=== PATIENT | female | born 1965 | race Caucasian/White ===

== ENCOUNTER 2016-07-31 12:53 | Emergency (ER) | payer OTHER ==
--- NOTE | ~2016-07-31 | CT4 ---
[facility] A Service of [facility] & [facility] RADIOLOGY TEXT RESULTS PATIENT: GEN GARCIA LOCATION: SED : 63 UNIT #: [id number] AGE: [address]: Blayne Borden DO SEX: F ORDER DR: [id number] [address] [address] [id number] E MR#: [id number] [facility] #: [id number] NAME: GEN GARCIA. : 1965 SEX: F STUDY DATE/TIME: 07/31/2016 13:31 UNIT: SED ROOM: STUDY DESCRIPTION: CT Abd and Pelv Wo Cont Attending Physician: Blayne Borden Ordering Physician: Staff Doctor Not On Primary Care Physician: Liztet Bradley M.D. MEDICAL IMAGING REPORT This report is preliminary unless electronic signature is present. EXAM CT abdomen and pelvis 07/31/2016 HISTORY Pain. Pain under right breast into abdomen with nausea onset 04:00 today. Prior history of polypectomy ovary mass. Lap-band gastro pizes alcohol. TECHNIQUE This CT exam was performed with one or more of the following radiation dose reduction techniques: automatic control, adjustment of mA and/or kV according to patient size, and iterative reconstruction. FINDINGS CT abdomen and pelvis performed without oral or intravascular contrast. No prior studies for comparison at this institution. 5 mm noncalcified pulmonary nodule right middle lobe. Lung bases otherwise clear. Inferior heart and pericardium unremarkable. Liver, gallbladder, spleen, pancreas, adrenal glands unremarkable. Kidneys unremarkable. Ureters and urinary bladder unremarkable. CT PELVIS: No inguinal adenopathy. Uterus and adnexal regions unremarkable. No pelvic or retroperitoneal adenopathy. Distal esophagus and stomach notable for presence of a lap band device. Band component appears normally located. Catheter and port components radiographically intact. Remainder of stomach unremarkable. Small bowel, appendix, colon notable for uncomplicated left hemicolon diverticulosis. There is an inferior periumbilical hernia measuring 4.7 cm x 6.5 cm x 6.8 cm. It contains only fat and shows no indication of complication. Scattered atherosclerotic arterial calcifications. Bony structures show no clearly acute abnormality. IMPRESSION 1. No acute abnormality is seen within the abdomen or pelvis. [facility] A Service of [facility] RADIOLOGY TEXT RESULTS PATIENT: GEN GARCIA LOCATION: SED : 63 UNIT #: [id number] AGE: [address]: Blayne Borden DO SEX: F ORDER DR: 2. Gallbladder, pancreas, appendix, kidneys, uterus and adnexal regions unremarkable. Uncomplicated left hemicolon diverticulosis. 3. Infraumbilical anterior abdominal wall hernia containing only fat without evidence of complication measuring 4.7 cm x 6.5 cm x 6.8 cm. 4. Lap-band device appears normally positioned. 5. 5 mm noncalcified nodule right middle lobe. If patient has risk factors for pulmonary malignancy inclusive of history of tobacco usage, a 6-month CT followup would be recommended. In the absence of such risk factors, a 12-month CT followup could be considered. Comparison with prior studies would be useful if available. Dictated by... Terrence Fletcher M.D. THIS IS AN ELECTRONICALLY VERIFIED REPORT Terrence Fletcher M.D. at 08/02/2016 4:24 PM AMRIT/kyrie TD: 08/01/2016 05:43 JOB #: [id number] MEDICAL IMAGING REPORT
--- NOTE | ~2016-07-31 | EKG ---
PATIENT: GEN GARCIA UNIT #: [id number] Ventricular Rate: 67 BPM Atrial Rate: 67 BPM P-R Interval: 146 ms QRS Duration: 76 ms Q-T Interval: 408 ms QTC Calculation(Bezet): 431 ms P [place]: 36 degrees Calculated R [place]: 5 degrees Calculated T [place]: 26 degrees Diagnosis Line: Normal sinus rhythm Diagnosis Line: borederline low QRS voltage. Diagnosis Line: Normal ECG Diagnosis Line: When compared with ECG of 29-MAR-2012 09:43, Diagnosis Line: No significant change was found Diagnosis Line: Confirmed by LOGAN CARR MD ([id number]) on Diagnosis Line: 09/12/2016 4:08:32 PM INTERPRETING MD: SHAZIA
[~2016-07-31 12:53] MED LIST: ACETAMINOPHEN500 M5; ACID CONTROL150 M1; ALBUTEROL17 GM INH; AMITRIPTYLINE H25 MG; DICLOFENAC PO; HEATHER0.35 MG PO; LEVAQUIN PO; MOBIC15 MG PO; ORTHO MICRONO0.35 MG PO; PREDNISONE PO; VICODIN PO
[2016-07-31 13:31] LABS: URINE SOURCE CLEAN CATCH
[2016-07-31 13:33] LABS: URINE APPEARANCE CLEAR; URINE BILIRUBIN NEG (NEG); URINE BLOOD TRACE-INTACT (NEG); URINE COLOR YELLOW; URINE GLUCOSE NEG (NORM); URINE KETONE NEG (NEG); URINE LEUKOCYTE ESTERASE TRACE (NEG); URINE NITRATE POS (NEG); URINE PROTEIN NEG (NEG); URINE UROBILINOGEN 0.2 MG/DL (NORM)
[2016-07-31 13:34] LABS: MICRO INDICATED? YES
[2016-07-31 13:50] LABS: BASOPHIL# 0.1 X10e3 (0-0.3); BASOPHIL% 0.9 % (0-2.5); EOSINOPHIL# 0.3 X10e3 (0-0.7); EOSINOPHIL% 3.2 % (0.0-7.0); HEMATOCRIT 48.1 % (35.0-45.0); HEMOGLOBIN 16.5 gm/dL (12.0-16.0); LYMPHOCYTE# 2.6 X10e3 (1.0-3.5); MEAN CELL VOLUME 90.1 FL (83-96); MEAN CORPUSCULAR HEMOGLOBIN 30.9 PG (28-34); MEAN CORPUSCULAR HGB CONC 34.3 g/dL (30-36); MEAN PLATELET VOLUME 7.9 FL (6.5-11.5); MONOCYTE# 0.6 X10e3 (0-1.0); MONOCYTE% 6.7 % (3.0-12.0); NEUTROPHIL# 5.3 X10e3 (1.5-7.1); NEUTROPHIL% 60.2 % (40-75); PLATELET COUNT 326 X10e3 (140-420); RED BLOOD COUNT 5.34 X10e (3.90-5.30); RED CELL DISTRIBUTION WIDTH 13.1 % (11.0-15.5); WHITE BLOOD COUNT 8.9 X10e3 (4.0-10.5)
[2016-07-31 13:52] LABS: DIFF IND NO
[2016-07-31 13:57] LABS: CULTURE INDICATED? YES; URINE BACTERIA 4+ (NEG); URINE RBC 0-2 /[HPF] (0-2); URINE SQUAMOUS EPITHELIAL CELL OCCAS /[HPF]
[2016-07-31 14:09] LABS: ALBUMIN SERUM 3.8 g/dL (3.5-5.0); ALKALINE PHOSPHATASE 166 U/L (32-92); ALT (SGPT) 13 U/L (10-40); AST (SGOT) 18 U/L (10-42); BILIRUBIN, DIRECT 0.1 mg/dL (0.0-0.2); BILIRUBIN,TOTAL 0.1 mg/dL (0.2-2.0); BLOOD UREA NITROGEN 10 mg/dL (9-23); CARBON DIOXIDE 27 mmol/L (22-31); CHLORIDE 101 mmol/L (100-111); CREATININE SERUM 0.8 mg/dL (0.6-1.4); GLOM FILT RATE Estimated ABOVE60 mL/min (>60); GLUCOSE FASTING 96 mg/dL (70-110); LIPASE 34 U/L (22-51); POTASSIUM 4.2 mmol/L (3.5-5.1); PROTEIN TOTAL SERUM 7.3 g/dL (6.0-8.3); SODIUM 137 mmol/L (135-145)
== END 2016-07-31 15:24 | disposition home or self-care (01) ==
LOC: SED 12:53
PROVIDERS: Emergency Medicine
DX: R10.11 Right upper quadrant pain (principal); R91.1 Solitary pulmonary nodule; F17.210 Nicotine dependence, cigarettes, uncomplicated
CPT/HCPCS: 36415; 74176; 80048; 80076; 81003; 83690; 85025; 87086; 87088; 87186; 93005; 96374; 96375; 99284; J1885; J2405

== ENCOUNTER → 2016-11-25 | Outpatient (CLI) | payer OTHER ==
--- NOTE | ~2016-11-25 | US6 ---
[facility] A Service of [facility] RADIOLOGY TEXT RESULTS PATIENT: GEN GARCIA LOCATION: [facility] : 63 UNIT #: [id number] AGE: [address]: Lizett Bradley MD SEX: F ORDER DR: [id number] [facility] [address] [place], [place] [address] [id number] O MR#: [id number] Acc #: [id number] NAME: GEN GARCIA. : 1965 SEX: F STUDY DATE/TIME: 11/25/2016 8:14 UNIT: [facility] ROOM: STUDY DESCRIPTION: US Abdominal Limited Attending Physician: Lizett Bradley M.D. Referring Physician: Lizett Bradley M.D. Ordering Physician: Lizett Bradley M.D. Primary Care Physician: Lizett Bradley M.D. MEDICAL IMAGING REPORT This report is preliminary unless electronic signature is present EXAM Right upper quadrant ultrasound INDICATIONS Epigastric pain with nausea and vomiting since July. Patient has LAP-band. TECHNIQUE Gordon-scale color and sonographic images were obtained through the right upper quadrant. FINDINGS Liver is mildly enlarged measuring up to about 16.1 cm in craniocaudal dimensions, and there is probably some mild and hepatic steatosis and there is hepatomegaly of the liver measuring up to about 16.1 cm craniocaudal dimensions. No focal hepatic lesions are seen, there is limited visualization of the pancreas. Gallbladder is normal in appearance with no stones or sludge identified. There is no gallbladder wall thickening or pericholecystic fluid. Right kidney is normal in appearance with no solid or cystic renal masses seen and no hydronephrosis identified. IMPRESSION Mild hepatomegaly and hepatic steatosis. No focal hepatic lesions are seen. There is no intra- or extrahepatic biliary dilatation. Dictated by... Martha Casey M.D. THIS IS AN ELECTRONICALLY VERIFIED REPORT Martha Casey M.D. at 11/26/2016 2:47 PM [facility] A Service of [facility] & [facility] RADIOLOGY TEXT RESULTS PATIENT: GEN GARCIA [facility]: [facility] #: [id number] : 63 UNIT #: [id number] AGE: [address]: Lizett Bradley MD SEX: F ORDER DR: Magnus TD: 11/25/2016 23:14 JOB #: [id number] MEDICAL IMAGING REPORT Page 1 of 1 COPY
== END | disposition home or self-care (01) ==
LOC: CGUS 07:30
DX: R10.11 Right upper quadrant pain (principal); R10.12 Left upper quadrant pain; K76.0 Fatty (change of) liver, not elsewhere classified; R16.0 Hepatomegaly, not elsewhere classified
CPT/HCPCS: 76705

== ENCOUNTER → 2017-01-28 | Outpatient (CLI) | payer OTHER ==
--- NOTE | ~2017-01-28 | CT57 ---
[facility] A Service of [facility] & [facility] RADIOLOGY TEXT RESULTS PATIENT: GEN GARCIA [facility] : 63 UNIT #: [id number] AGE: [address]: Lizett Bradley MD SEX: F ORDER DR: [id number] [facility] [address] [place], [place] [address] [id number] O MR#: [id number] [facility] #: [id number] NAME: GEN GARCIA : 1965 SEX: F STUDY DATE/TIME: 01/28/2017 09:14 UNIT: [facility] ROOM: STUDY DESCRIPTION: CT Chest Wo Cont Attending Physician: Lizett Bradley M.D. Referring Physician: Lizett Bradley M.D. Ordering Physician: Lizett Bradley M.D. Primary Care Physician: Lizett Bradley M.D. MEDICAL IMAGING REPORT This report is preliminary unless electronic signature is present EXAM CT chest without contrast 01/28/2017 0914 hours HISTORY 51-year-old with history of smoking for followup of right lung nodule seen on CT abdomen 07/31/2016. No current chest complaints. COMPARISON Chest x-ray 06/04/2010, CT abdomen and pelvis 07/31/2016. TECHNIQUE Helical noncontrasted images were obtained from the lung apices through the adrenal glands. Sagittal and coronal reconstructions were performed. Total exam DLP 803 mGy-cm. This CT examination was performed with one or more of the following radiation dose reduction techniques: automatic exposure control, adjustment of mA and/or kV according to patient size, and iterative reconstruction. FINDINGS Images through the thoracic inlet demonstrate mildly enlarged left and right lobes of thyroid without discrete nodule or lesion. There is no supraclavicular adenopathy. Images through the chest demonstrate normal caliber aorta. Coronary calcifications are present. Cardiac chambers, pericardium are normal. There is mild dilatation of the entire esophagus with fluid throughout the esophagus extending down to the level of the Lap-Band at the proximal stomach. This could be indicative of reflux or recent ingestion of a meal or perhaps excessive tightness of the Lap-Band. There is no esophageal wall thickening seen. [facility]. [facility] A Service of [facility] & [facility] RADIOLOGY TEXT RESULTS PATIENT: GEN GARCIA LOCATION: [facility] : 63 UNIT #: [id number] AGE: [address]: Lizett Bradley MD SEX: F ORDER DR: There is no pleural or pericardial fluid. The lungs demonstrate a 5 mm nodule in the right middle lobe laterally unchanged in size from 07/31/2016. This measures up to 481 Hounsfield units today consistent with a benign calcified granuloma. There is a calcified granuloma inferomedial to this also benign. There is mild underlying centrilobular emphysema. No suspicious nodules. Limited views through the upper abdomen demonstrate postop change of Lap-Band placement. This is stable in appearance. IMPRESSION 1. Previously demonstrated 5 mm nodule in the right middle lobe on CT abdomen 07/31/2016 is unchanged in size. This is clearly calcified with density measurement of 481 Hounsfield units today. This is a benign granuloma. A second granuloma is also seen in the right middle lobe and benign. 2. There is postop change of Lap-Band placement with no change in the band from 07/31/2016. There is diffuse distension of the esophagus containing fluid on this exam which could be related to recent ingestion of a meal. It could also indicate presence of dysfunction at the Lap-Band. Correlate with any symptoms. Dictated by... Fátima Mendez M.D. THIS IS AN ELECTRONICALLY VERIFIED REPORT Fátima Mendez M.D. at 01/28/2017 2:31 PM BERRY/jania TD: 01/28/2017 12:43 JOB #: [id number] MEDICAL IMAGING REPORT Page 1 of 1 COPY
== END | disposition home or self-care (01) ==
LOC: CCAT 08:49
DX: R91.1 Solitary pulmonary nodule (principal); K30 Functional dyspepsia; Z98.890 Other specified postprocedural states
CPT/HCPCS: 71250